=== PATIENT | male | born 1970 | race Hispanic/Latino ===

== ENCOUNTER 2022-02-16 19:51 | Emergency (ER) | payer OTHER ==
[~2022-02-16] VITALS: Ht 154.9 cm; Wt 81.6 kg
[2022-02-16 19:58] VITALS: BP 130/80
[2022-02-16] MEDS ORDERED: CEFTRIAXONE 1G VIAL IM ONE (21:10)
[2022-02-16] MEDS ORDERED: SULFAMETHOX-TMP DS 800/160 TAB PO SCH (21:10)
[2022-02-16] MEDS ORDERED: SULF1TAB42 PO (21:22)
[2022-02-16] MEDS ORDERED: CEPH500B PO (21:22)
== END 2022-02-16 21:42 | disposition home or self-care (01) ==
LOC: EDH 19:51
DX: L03.211 Cellulitis of face (principal)
CPT/HCPCS: 82948; 96372; 99283; J0696